=== PATIENT | male | born 1980 | race Caucasian/White ===

== ENCOUNTER 2018-09-20 11:19 | Inpatient (IN) ==
[2018-09-20] MEDS ORDERED: NICOTINE 21 MG/24 HR PATCH TRANSDERM PRN (11:54)
[2018-09-20] MEDS ORDERED: PROMETHAZINE 25 MG/1 ML VIAL IM PRN (11:54)
[2018-09-20] MEDS ORDERED: ONDANSETRON 4 MG/2 ML VIAL IV PRN (11:54)
[2018-09-20] MEDS ORDERED: THIAMINE INJ 100 MG, FOLIC ACID INJ 1 MG, MULTIVITAMIN INJ 10 ML in SODIUM CHLORIDE 0.9... IV ONE (11:58)
[2018-09-20] MEDS ORDERED: METHOCARBAMOL 750 MG TABLET PO PRN (11:58)
[2018-09-20] MEDS ORDERED: DICYCLOMINE 10 MG CAPSULE PO PRN (11:58)
[2018-09-20] MEDS ORDERED: LORazepam 2 MG/1 ML VIAL IV PRN (11:58)
[2018-09-20 13:16] LABS: Basophils % 0.4 % (0.0-0.8); Eosinophils # 0.1 10*3/uL (0.0-0.87); Eosinophils % 1.1 % (0.00-10.9); Hematocrit 47.2 VOL% (42.0-52.0); Hemoglobin 16.1 GM/DL (14.0-18.0); Immature Granulocytes % 0.6 %; Immature Granulocytes Absolute 0.05 #; Lymphocytes # 1.1 10*3/uL (1.4-4.0); Lymphocytes % 13.1 % (21.2-54.2); Mean Corpuscular HGB Conc 34.1 GM/DL (32-36); Mean Corpuscular Volume 97.7 FL (87-102); Mean Platelet Volume 9.2 FL (9.6-12.0); Monocytes % 8.8 % (1.7-12.7); Platelet Count 207 T/CUMM (130-400); Red Blood Count 4.83 MC/CUMM (3.8-5.5); Red Cell Distribution Width 11.8 % (9.3-17.3); White Blood Count 8.2 T/CUMM (4-12)
[2018-09-20 13:24] LABS: Apearance,Urine CLEAR (Clear); Bilirubin,Urine Negative (Negative); Blood, Urine Negative (Negative); Glucose,Urine (UA) Negative (Negative); Ketones,Urine Negative (Negative); Mucus,Urine Occasional /LPF (Occasional); Nitrite,Urine Negative (Negative); Protein,Urine Negative; RBC,Urine 1 /HPF (0-4); Squamous Epithelial Cell,Urine Occasional /HPF (0-10); Urine Color Yellow (Yellow); Urine Specific Gravity 1.015 (1.001-1.035); Urine Urobilinogen < 2.0 EU/DL (0.2-1.0); WBC,Urine <1 /HPF (0-6)
[2018-09-20 13:47] LABS: Albumin 4.3 G/DL (3.4-5.0); Bilirubin,Total 0.8 MG/DL (0.2-1.0); Calcium 9.1 MG/DL (8.5-10.1); Osmolality,Calculated 278.3 MOS/KG (273-304); Thyroid Stimulating Hormone 1.73 uIU/ml (0.358-3.74); Total Protein 7.8 G/DL (6.4-8.3)
[2018-09-20] MEDS: chlordiazePOXIDE 25 MG CAPSULE PO SCH ×3 (13:49→23:46)
[2018-09-20] MEDS: PANTOPRAZOLE 40 MG TABLET PO SCH (13:50)
[2018-09-20] MEDS: ACETAMINOPHEN 325 MG TABLET PO PRN (13:54)
[2018-09-20 14:47] LABS: Barbiturates Screen,Urine Negative (Negative); Benzodiazepines Screen,Urine Negative (Negative); Cannabinoid Screen,Urine Negative (Negative); Opiate Screen,Urine Negative (Negative); Phencyclidine Screen,Urine Negative (Negative)
[2018-09-20 17:30] LABS: Folate 8.1 NG/ML (5.4-24.0)
[2018-09-20 18:44] LABS: Hepatitis B Core IgM Quant < 0.05 Index; Hepatitis B Surface Ag Quant < 0.10 Index; Hepatitis B Surface Ag Result Negative (Negative); Hepatitis C Virus Ab Quant 0.06 Index; Hepatitis C Virus Ab Result Negative (Negative)
[2018-09-20] MEDS ORDERED: diphenhydrAMINE CAP 25 MG CAPSULE PO PRN (19:46)
[2018-09-20] MEDS: QUEtiapine 25 MG TABLET PO SCH (20:05)
[2018-09-20] MEDS: busPIRone 10 MG TABLET PO SCH (20:05)
[2018-09-21 05:44] LABS: Albumin 3.2 G/DL (3.4-5.0); Bilirubin,Direct 0.23 MG/DL (0.0-0.20); Bilirubin,Total 1.2 MG/DL (0.2-1.0); Total Protein 6.4 G/DL (6.4-8.3)
[2018-09-21] MEDS: chlordiazePOXIDE 25 MG CAPSULE PO SCH ×3 (06:27→21:13)
[2018-09-21] MEDS: busPIRone 10 MG TABLET PO SCH ×2 (09:57→21:13)
[2018-09-21] MEDS: LISINOPRIL 5 MG TABLET PO SCH (09:58)
[2018-09-21] MEDS: PANTOPRAZOLE 40 MG TABLET PO SCH (09:58)
[2018-09-21] MEDS: ACETAMINOPHEN 325 MG TABLET PO PRN (16:12)
[2018-09-21] MEDS: QUEtiapine 25 MG TABLET PO SCH (21:13)
[2018-09-21] MEDS: BACLOFEN 10 MG TABLET PO PRN (21:32)
[2018-09-22] MEDS: chlordiazePOXIDE 25 MG CAPSULE PO SCH ×2 (06:26→11:40)
[2018-09-22] MEDS: PANTOPRAZOLE 40 MG TABLET PO SCH (08:42)
[2018-09-22] MEDS: LISINOPRIL 5 MG TABLET PO SCH (08:42)
[2018-09-22] MEDS: busPIRone 10 MG TABLET PO SCH (08:42)
[2018-09-22 11:35] VITALS: BP 140/91
[2018-09-22] MEDS: BACLOFEN 10 MG TABLET PO PRN (11:40)
[2018-09-22 13:29] LABS: INR 0.9; PT Patient Result 10.3 SECS; Partial Thromboplastin Time 26.4 SECS (0-40)
== END 2018-09-22 16:10 | disposition home or self-care (01) | DRG 897 ==
LOC: N.4E 12:24
PROVIDERS: ADMIT Internal Medicine; ATTEND Internal Medicine

== ENCOUNTER 2019-08-03 12:33 | Inpatient (IN) ==
[2019-08-03] MEDS ORDERED: METOCLOPRAMIDE 10 MG/2 ML VIAL IV STA (13:04)
[2019-08-03] MEDS ORDERED: PANTOPRAZOLE 40 MG VIAL IV STA (13:04)
[2019-08-03] MEDS ORDERED: ONDANSETRON 4 MG/2 ML VIAL IV STA (13:04)
[2019-08-03] MEDS ORDERED: PIPERACILLIN/TAZOBACTAM 3,375 MG in SODIUM CHLORIDE 0.9% 100 ML IV STA (13:04)
[2019-08-03] MEDS ORDERED: SODIUM CHLORIDE 0.9% 1,000 ML IV STA (13:04)
[2019-08-03 13:17] LABS: Basophils # 0.1 10*3/uL (0.0-0.2); Basophils % 0.6 % (0.0-0.8); Eosinophils # 0.1 10*3/uL (0.0-0.87); Eosinophils % 1.1 % (0.00-10.9); Hematocrit 45.2 VOL% (42.0-52.0); Hemoglobin 15.2 GM/DL (14.0-18.0); Immature Granulocytes % 0.8 %; Immature Granulocytes Absolute 0.08 #; Lymphocytes # 1.2 10*3/uL (1.4-4.0); Lymphocytes % 12.8 % (21.2-54.2); Mean Corpuscular HGB Conc 33.6 GM/DL (32-36); Mean Platelet Volume 10.2 FL (9.6-12.0); Monocytes % 14.5 % (1.7-12.7); Neutrophils % 70.2 % (38.7-73.9); Platelet Count 193 T/CUMM (130-400); Red Blood Count 4.39 MC/CUMM (3.8-5.5); Red Cell Distribution Width 12.1 % (9.3-17.3); White Blood Count 9.6 T/CUMM (4-12)
[2019-08-03 13:34] LABS: Alanine Aminotransferase 100 U/L (16-61); Albumin 3.7 G/DL (3.4-5.0); Alkaline Phosphatase 313 U/L (45-117); Amylase 117 U/L (25-115); Aspartate Amino Transferase 161 U/L (0-37); Blood Urea Nitrogen 5 MG/DL (7-18); Estimated Glom Filtration Rate 130 ML/MIN; Ferritin 1610.1 ng/ml (26-388); Glucose 113 MG/DL (74-106); Osmolality,Calculated 267.1 MOS/KG (273-304); Total Protein 8.4 G/DL (6.4-8.3); Troponin I < 0.015 NG/ML (0.00-0.045)
[2019-08-03 14:58] LABS: Apearance,Urine CLOUDY (Clear); Bilirubin,Urine Negative (Negative); Blood, Urine Negative (Negative); Glucose,Urine (UA) Negative (Negative); Ketones,Urine 5 mg/dL (Negative); Mucus,Urine Occasional /LPF (Occasional); Nitrite,Urine Negative (Negative); Protein,Urine Negative; RBC,Urine 1 /HPF (0-4); Urine Color Amber (Yellow); Urine Specific Gravity 1.023 (1.001-1.035); WBC,Urine 1 /HPF (0-6)
[2019-08-03 15:08] LABS: Barbiturates Screen,Urine Negative (Negative); Benzodiazepines Screen,Urine Negative (Negative); Cannabinoid Screen,Urine Negative (Negative); Opiate Screen,Urine Negative (Negative); Phencyclidine Screen,Urine Negative (Negative)
[2019-08-03] MEDS ORDERED: DEXTROSE 10% 250 ML BAG IV PRN (16:50)
[2019-08-03] MEDS ORDERED: hydrALAZINE 20 MG/1 ML VIAL IV PRN (16:50)
[2019-08-03] MEDS ORDERED: ONDANSETRON 4 MG/2 ML VIAL IV PRN (16:50)
[2019-08-03] MEDS ORDERED: GLUCAGON 1 MG VIAL IM PRN (16:50)
[2019-08-03 19:31] LABS: Folate 17.1 NG/ML (5.4-24.0); Vitamin B12 > 2000 PG/ML (211-911)
[2019-08-03] MEDS ORDERED: THIAMINE INJ 100 MG, FOLIC ACID INJ 1 MG, MULTIVITAMIN INJ 10 ML in SODIUM CHLORIDE 0.9... IV SCH (20:00)
[2019-08-03] MEDS ORDERED: ENOXAPARIN 40 MG/0.4 ML SYRINGE SUBCUT SCH (21:00)
[2019-08-03] MEDS: LORazepam 2 MG/1 ML VIAL IV PRN (21:28)
[2019-08-03] MEDS: chlordiazePOXIDE 25 MG CAPSULE PO SCH (21:28)
[2019-08-04 00:07] LABS: PT Patient Result 11.2 SECS (9.8-11.9); Partial Thromboplastin Time 32.1 SECS (23.9-33.8)
[2019-08-04] MEDS: chlordiazePOXIDE 25 MG CAPSULE PO SCH ×3 (02:15→14:35)
[2019-08-04] MEDS: SODIUM CHLORIDE 0.9% 1,000 ML IV SCH ×3 (02:25→09:17)
[2019-08-04] MEDS: LORazepam 2 MG/1 ML VIAL IV PRN ×2 (03:23→09:17)
[2019-08-04 05:19] LABS: Basophils # 0.1 10*3/uL (0.0-0.2); Basophils % 0.6 % (0.0-0.8); Eosinophils # 0.1 10*3/uL (0.0-0.87); Hemoglobin 13.8 GM/DL (14.0-18.0); Immature Granulocytes % 0.8 %; Immature Granulocytes Absolute 0.07 #; Lymphocytes # 1.7 10*3/uL (1.4-4.0); Lymphocytes % 19.6 % (21.2-54.2); Mean Corpuscular HGB Conc 32.9 GM/DL (32-36); Mean Corpuscular Volume 105.3 FL (87-102); Monocytes % 14.3 % (1.7-12.7); Neutrophils % 63.7 % (38.7-73.9); Platelet Count 178 T/CUMM (130-400); Red Blood Count 3.99 MC/CUMM (3.8-5.5); Red Cell Distribution Width 12.2 % (9.3-17.3); White Blood Count 8.9 T/CUMM (4-12)
[2019-08-04 05:41] LABS: Calcium 8.9 MG/DL (8.5-10.1)
[2019-08-04] MEDS ORDERED: FOLIC ACID 1 MG TABLET PO SCH (09:00)
[2019-08-04] MEDS ORDERED: METOPROLOL TARTRATE 50 MG TABLET PO SCH (09:00)
[2019-08-04] MEDS ORDERED: THIAMINE 100 MG TABLET PO SCH (09:00)
[2019-08-04] MEDS ORDERED: lisinopriL 10 MG TABLET PO SCH (09:00)
[2019-08-04 12:02] LABS: Hepatitis B Core IgM Quant < 0.05 Index; Hepatitis B Surface Ag Quant < 0.10 Index; Hepatitis B Surface Ag Result Negative (Negative); Hepatitis C Virus Ab Quant 0.11 Index; Hepatitis C Virus Ab Result Negative (Negative)
[2019-08-04 12:13] LABS: Albumin 2.9 G/DL (3.4-5.0); Bilirubin,Direct 1.26 MG/DL (0.0-0.20); Bilirubin,Indirect 0.7 MG/DL (0.0-1.0); Total Protein 6.6 G/DL (6.4-8.3)
[2019-08-04 12:47] VITALS: BP 112/84
== END 2019-08-04 15:03 | disposition home or self-care (01) | DRG 440 ==
LOC: N.ED 12:33 → N.EDINP 16:44 → N.2W 18:04
PROVIDERS: ADMIT Family Medicine; ATTEND Family Medicine